=== PATIENT | female | born 1950 ===

== ENCOUNTER 2018-05-19 19:51 | Emergency (ER) | payer OTHER ==
[~2018-05-19] VITALS: Ht 152.4 cm; Wt 90.7 kg
[~2018-05-19 19:51] MED LIST: ACID REDUCER; ALBIPROI; ALBU.083IS; ASPI81EC PO; AZIT500 PO; BUPR100 PO; DONE10 PO; ESCI10 PO; EZET10 PO; FLUSAL2505; FURO40 PO; GABA600 PO; HYDACE5 PO; IPRAIS; KETO120T TOP; LISI20 PO; LISI5 PO; LIVALO; LOSA25 PO; LOSARTAN POTASS25 MG PO; METO100 PO; METO100ER PO; MODA200 PO; Metoprolol Tar100 MG PO; NAPR550 PO; OMEPRAZOLE MAGN20 MG PO; PARO25 PO; POTCHL20ER PO; PRAV20 PO; PRED20 PO; PROP80ER PO; Prednisone20 MG PO; RANO500T PO; ROSU10TA PO; SITA50T2 PO; SOLI5 PO; TRIHYD253A PO; VENLAFAXINE HCL75 MG PO; Zofran8 MG PO; [UNRECOGNIZED DRUG - REMARK]
[2018-05-19] MEDS ORDERED: TRIAMTERENE (20:25)
[2018-05-19] MEDS ORDERED: ESCI10 PO (20:25)
[2018-05-19] MEDS ORDERED: METO25 PO (20:26)
[2018-05-19] MEDS ORDERED: TRADJENTA5 MG PO (20:26)
[2018-05-19] MEDS ORDERED: VENL150ER PO (20:26)
[2018-05-19] MEDS ORDERED: RANITIDINE HCL (20:27)
[2018-05-19] MEDS ORDERED: ROSU10TA PO (20:28)
[2018-05-19] MEDS ORDERED: RANO500T (20:28)
[2018-05-19] MEDS ORDERED: METF500C (20:29)
[2018-05-19] MEDS ORDERED: MOTION RELIEF25 MG PO (20:29)
[2018-05-19 20:33] LABS: BASOPHILS ABSOLUTE AUTO 0.08 K/mm3 (0.00-0.23); BASOPHILS PERCENT AUTO 1 % (0-2); EOSINOPHILS ABSOLUTE AUTO 0.22 K/mm3 (0.00-0.68); EOSINOPHILS PERCENT AUTO 2 % (0-6); Hematocrit 42.9 % (33.0-51.0); Hemoglobin 14.1 g/dL (11.5-16.0); IMMATURE GRAN ABSOLUTE AUTO 0.11 K/mm3 (0.00-0.10); IMMATURE GRAN PERCENT AUTO 1 % (0-1); LYMPHOCYTES PERCENT AUTO 29 % (21-46); MONOCYTES ABSOLUTE AUTO 0.87 K/mm3 (0.16-1.47); MONOCYTES PERCENT AUTO 9 % (4-13); Mean Corpuscular HGB 28.5 pg (26.0-34.0); Mean Corpuscular HGB Conc 32.9 g/dL (31.5-36.5); Mean Corpuscular Volume 87 fL (80-100); Mean Platelet Volume 9.7 fL (9.1-12.4); NEUTROPHILS ABSOLUTE AUTO 5.26 K/mm3 (1.96-9.15); NEUTROPHILS PERCENT AUTO 57 % (41-73); Platelet Count 286 K/mm3 (150-400); RDW Coefficient Variation 12.5 % (11.7-14.2); RDW Standard Deviation 39.6 fL (35.1-46.3); Red Blood Cell Count 4.95 M/mm3 (3.80-5.20); White Blood Cell Count 9.24 K/mm3 (4.00-11.30)
[2018-05-19 20:50] LABS: Alanine Aminotransfer (ALT/SGP 36 U/L (12-78); Albumin, Blood 3.5 g/dL (3.4-5.0); Albumin/Globulin Ratio 0.8 (0.8-1.8); Alk Phos 115 U/L (50-136); Anion Gap 9 mmol/L (6-16); Aspartate Aminotrans (AST/SGOT 35 U/L (12-37); Bilirubin, Total 0.2 mg/dL (0.1-1.0); Blood Urea Nitrogen 14 mg/dL (8-24); Bun/Creatinine Ratio 21.8 (12.0-20.0); CO2, Blood 27 mmol/L (21-32); Calcium, Blood 9.1 mg/dL (8.5-10.1); Chloride, Blood 105 mmol/L (98-108); Creatinine, Blood 0.64 mg/dL (0.40-1.00); Globulin, Blood 4.2 g/dL (2.2-4.0); Glomerular Filtration Rate >60 (60-); Glucose, Blood 243 mg/dL (70-99); Potassium, Blood 3.8 mmol/L (3.5-5.5); Sodium, Blood 141 mmol/L (136-145); Total Protein, Blood 7.7 g/dL (6.4-8.2); Troponin I <0.015 ng/mL (0.000-0.040)
== END 2018-05-19 21:44 | disposition home or self-care (01) ==
LOC: ER 19:51
PROVIDERS: Emergency Medicine
DX: R07.89 Other chest pain (principal); F41.9 Anxiety disorder, unspecified; J44.9 Chronic obstructive pulmonary disease, unspecified; I10 Essential (primary) hypertension; E11.9 Type 2 diabetes mellitus without complications; F32.9 Major depressive disorder, single episode, unspecified; Z79.899 Other long term (current) drug therapy; Z79.82 Long term (current) use of aspirin; Z79.52 Long term (current) use of systemic steroids
CPT/HCPCS: 36415; 71046; 80053; 82947; 84484; 85025; 93005; 93010; 99284-25

== ENCOUNTER 2018-06-13 14:39 | Emergency (ER) | payer MEDICARE ==
[~2018-06-13] VITALS: Ht 154.9 cm; Wt 78.5 kg
[~2018-06-13 14:39] MED LIST changes: +METF500C; +METO25 PO; +MOTION RELIEF25 MG PO; +RANITIDINE HCL; +RANO500T; +TRADJENTA5 MG PO; +TRIAMTERENE; +VENL150ER PO
[2018-06-13] MEDS ORDERED: DONE10 PO (15:18)
[2018-06-13] MEDS ORDERED: SERT50 PO (15:20)
[2018-06-13 15:57] LABS: Source, Urine Clean Catch
[2018-06-13 16:06] LABS: Appearance, Urine Clear (Clear); Bilirubin, Urine Neg (Neg); Blood, Urine Neg (Neg); Color, Urine Yellow (P-Yellow); Glucose Qualitative, Urine Neg (Neg); Ketones, Urine Neg (Neg); Leukocyte Esterase, Urine Neg (Neg); Nitrite, Urine Neg (Neg); Protein, Urine Neg (Neg); Urobilinogen, Urine NORM (Normal)
[2018-06-13 16:07] LABS: BASOPHILS ABSOLUTE AUTO 0.05 K/mm3 (0.00-0.23); BASOPHILS PERCENT AUTO 1 % (0-2); EOSINOPHILS ABSOLUTE AUTO 0.14 K/mm3 (0.00-0.68); EOSINOPHILS PERCENT AUTO 1 % (0-6); Hematocrit 45.1 % (33.0-51.0); Hemoglobin 14.4 g/dL (11.5-16.0); IMMATURE GRAN ABSOLUTE AUTO 0.07 K/mm3 (0.00-0.10); IMMATURE GRAN PERCENT AUTO 1 % (0-1); LYMPHOCYTES ABSOLUTE AUTO 2.46 K/mm3 (0.84-5.20); LYMPHOCYTES PERCENT AUTO 25 % (21-46); MONOCYTES ABSOLUTE AUTO 0.78 K/mm3 (0.16-1.47); MONOCYTES PERCENT AUTO 8 % (4-13); Mean Corpuscular HGB 28.1 pg (26.0-34.0); Mean Corpuscular HGB Conc 31.9 g/dL (31.5-36.5); Mean Corpuscular Volume 88 fL (80-100); NEUTROPHILS ABSOLUTE AUTO 6.55 K/mm3 (1.96-9.15); NEUTROPHILS PERCENT AUTO 65 % (41-73); Platelet Count 253 K/mm3 (150-400); RDW Standard Deviation 42.1 fL (35.1-46.3); Red Blood Cell Count 5.12 M/mm3 (3.80-5.20); White Blood Cell Count 10.05 K/mm3 (4.00-11.30)
[2018-06-13 16:25] LABS: U Amphetamine Screen Not Detected; U Barbituate Screen Not Detected; U Benzodiazapine Screen DETECTED; U Buprenorphine Screen Not Detected; U Cannabinoids Screen Not Detected; U Cocaine Screen Not Detected; U Methadone Screen Not Detected; U Methamphetamine Screen Not Detected; U Opiates Screen Not Detected; U Oxycodone Screen Not Detected; U Phencyclidine Screen Not Detected; U Propoxyphene Screen Not Detected
[2018-06-13 16:31] LABS: Alanine Aminotransfer (ALT/SGP 35 U/L (12-78); Albumin, Blood 3.8 g/dL (3.4-5.0); Alk Phos 105 U/L (50-136); Anion Gap 8 mmol/L (6-16); Aspartate Aminotrans (AST/SGOT 28 U/L (12-37); Bilirubin, Total 0.3 mg/dL (0.1-1.0); Blood Urea Nitrogen 16 mg/dL (8-24); Bun/Creatinine Ratio 24.5 (12.0-20.0); CO2, Blood 28 mmol/L (21-32); Calcium, Blood 9.2 mg/dL (8.5-10.1); Chloride, Blood 105 mmol/L (98-108); Creatinine, Blood 0.65 mg/dL (0.40-1.00); Ethanol (Alcohol), Blood, Med <3 mg/dL; Free Thyroxine 0.93 ng/dL (0.70-1.60); Globulin, Blood 3.8 g/dL (2.2-4.0); Glomerular Filtration Rate >60 (60-); Glucose, Blood 176 mg/dL (70-99); Potassium, Blood 4.1 mmol/L (3.5-5.5); Salicylate <1.7 mg/dL (2.8-20.0); Sodium, Blood 141 mmol/L (136-145); Total Protein, Blood 7.6 g/dL (6.4-8.2)
[2018-06-13 17:14] LABS: Acetaminophen, Random <2.0 ug/mL (10.0-30.0)
== END 2018-06-13 18:57 | disposition home or self-care (01) ==
LOC: ER 14:39
PROVIDERS: Emergency Medicine
DX: F32.9 Major depressive disorder, single episode, unspecified (principal); F03.90 Unspecified dementia, unspecified severity, without behavioral disturbance, psychotic disturbance, mood disturbance, and anxiety; Z79.899 Other long term (current) drug therapy; Z79.82 Long term (current) use of aspirin; Z79.84 Long term (current) use of oral hypoglycemic drugs; J44.9 Chronic obstructive pulmonary disease, unspecified; I10 Essential (primary) hypertension; Z87.891 Personal history of nicotine dependence; F41.0 Panic disorder [episodic paroxysmal anxiety]; E11.9 Type 2 diabetes mellitus without complications
CPT/HCPCS: 80053; 81003; 84439; 84443; 84484; 85025; 93005; 93010; 99283; 99285-25; G0480; Q3014

== ENCOUNTER 2018-06-13 20:55 | Emergency (ER) | payer MEDICARE ==
[~2018-06-13] VITALS: Ht 154.9 cm; Wt 77.1 kg
[~2018-06-13 20:55] MED LIST changes: +SERT50 PO
== END 2018-06-13 21:43 | disposition home or self-care (01) ==
LOC: ER 20:55
DX: F41.0 Panic disorder [episodic paroxysmal anxiety] (principal); F32.9 Major depressive disorder, single episode, unspecified; J44.9 Chronic obstructive pulmonary disease, unspecified; E11.9 Type 2 diabetes mellitus without complications; F03.90 Unspecified dementia, unspecified severity, without behavioral disturbance, psychotic disturbance, mood disturbance, and anxiety; I10 Essential (primary) hypertension; Z79.899 Other long term (current) drug therapy; Z79.82 Long term (current) use of aspirin; Z79.84 Long term (current) use of oral hypoglycemic drugs; Z87.891 Personal history of nicotine dependence
CPT/HCPCS: 99283

== ENCOUNTER 2018-06-24 12:40 | Observation (INO) | payer MEDICARE ==
[~2018-06-24] VITALS: Ht 154.9 cm; Wt 74.8 kg
[2018-06-24 14:15] LABS: Appearance, Urine Clear (Clear); Bilirubin, Urine Neg (Neg); Blood, Urine 1+ (Neg); Color, Urine Yellow (P-Yellow); Glucose Qualitative, Urine 4+ (Neg); Ketones, Urine Neg (Neg); Leukocyte Esterase, Urine 2+ (Neg); Nitrite, Urine Neg (Neg); Protein, Urine Neg (Neg); Specific Gravity, Urine 1.015 (1.003-1.022); Urobilinogen, Urine NORM (Normal)
[2018-06-24 14:32] LABS: U Amphetamine Screen Not Detected; U Barbituate Screen Not Detected; U Benzodiazapine Screen Not Detected; U Buprenorphine Screen Not Detected; U Cannabinoids Screen Not Detected; U Cocaine Screen Not Detected; U Methadone Screen Not Detected; U Methamphetamine Screen Not Detected; U Opiates Screen Not Detected; U Oxycodone Screen Not Detected; U Phencyclidine Screen Not Detected; U Propoxyphene Screen Not Detected
[2018-06-24 14:36] LABS: Bacteria Mod /hpf; Squamous Epithelial Cells Mod /hpf (Few)
[2018-06-24 14:51] LABS: BASOPHILS ABSOLUTE AUTO 0.07 K/mm3 (0.00-0.23); BASOPHILS PERCENT AUTO 1 % (0-2); EOSINOPHILS ABSOLUTE AUTO 0.27 K/mm3 (0.00-0.68); EOSINOPHILS PERCENT AUTO 3 % (0-6); Hematocrit 46.1 % (33.0-51.0); Hemoglobin 14.7 g/dL (11.5-16.0); IMMATURE GRAN ABSOLUTE AUTO 0.05 K/mm3 (0.00-0.10); IMMATURE GRAN PERCENT AUTO 1 % (0-1); LYMPHOCYTES PERCENT AUTO 20 % (21-46); MONOCYTES ABSOLUTE AUTO 0.73 K/mm3 (0.16-1.47); MONOCYTES PERCENT AUTO 8 % (4-13); Mean Corpuscular HGB 28.4 pg (26.0-34.0); Mean Corpuscular HGB Conc 31.9 g/dL (31.5-36.5); Mean Corpuscular Volume 89 fL (80-100); NEUTROPHILS ABSOLUTE AUTO 6.63 K/mm3 (1.96-9.15); NEUTROPHILS PERCENT AUTO 69 % (41-73); Platelet Count 243 K/mm3 (150-400); RDW Coefficient Variation 12.7 % (11.7-14.2); RDW Standard Deviation 41.9 fL (35.1-46.3); Red Blood Cell Count 5.17 M/mm3 (3.80-5.20); White Blood Cell Count 9.65 K/mm3 (4.00-11.30)
[2018-06-24 14:55] LABS: Alanine Aminotransfer (ALT/SGP 51 U/L (12-78); Albumin, Blood 3.8 g/dL (3.4-5.0); Alk Phos 121 U/L (50-136); Anion Gap 7 mmol/L (6-16); Aspartate Aminotrans (AST/SGOT 38 U/L (12-37); Bilirubin, Total 0.2 mg/dL (0.1-1.0); Blood Urea Nitrogen 12 mg/dL (8-24); Bun/Creatinine Ratio 17.3 (12.0-20.0); CO2, Blood 31 mmol/L (21-32); Chloride, Blood 105 mmol/L (98-108); Creatinine, Blood 0.69 mg/dL (0.40-1.00); Ethanol (Alcohol), Blood, Med <3 mg/dL; Globulin, Blood 3.9 g/dL (2.2-4.0); Glomerular Filtration Rate >60 (60-); Glucose, Blood 204 mg/dL (70-99); Potassium, Blood 3.4 mmol/L (3.5-5.5); Salicylate <1.7 mg/dL (2.8-20.0); Sodium, Blood 143 mmol/L (136-145); Total Protein, Blood 7.7 g/dL (6.4-8.2)
[2018-06-24 15:02] LABS: Acetaminophen, Random <2.0 ug/mL (10.0-30.0)
[2018-06-25] MEDS ORDERED: Lexapro 2020 MG PO (17:10)
== END 2018-06-25 17:25 | disposition home or self-care (01) ==
LOC: ER 12:40 → EOR 12:41
PROVIDERS: ADMIT Emergency Medicine
DX: F33.2 Major depressive disorder, recurrent severe without psychotic features (principal); J44.9 Chronic obstructive pulmonary disease, unspecified; E11.9 Type 2 diabetes mellitus without complications; I10 Essential (primary) hypertension; Z79.899 Other long term (current) drug therapy
CPT/HCPCS: 80053; 81001; 84443; 85025; 86592; 87086; 99285; G0378; G0480; Q0163; Q3014

== ENCOUNTER → 2018-08-29 | Outpatient (CLI) | payer MEDICARE ==
[~2018-08-29] MED LIST changes: +Lexapro 2020 MG PO
== END | disposition home or self-care (01) ==
LOC: LAB SHORT 16:45 → LAB EV 16:45
DX: N39.0 Urinary tract infection, site not specified (principal)
CPT/HCPCS: 87086

== ENCOUNTER 2019-05-09 11:38 | Day surgery (SDC) | payer MEDICARE ==
[~2019-05-09] VITALS: Ht 152.4 cm; Wt 86.7 kg
[2019-05-09] MEDS ORDERED: Isosorbide Mono30 MG (12:47)
[2019-05-09] MEDS ORDERED: DESO.05TL (12:47)
[2019-05-09] MEDS ORDERED: Zocor20 MG (12:48)
--- NOTE | 2019-05-09 13:10 | NUR ---
05/09/19 1310 Cheri Upton POM MASK ON AND O2 SET AT 10L
== END 2019-05-09 14:15 | disposition home or self-care (01) ==
LOC: ORSCSDS 11:38
PROVIDERS: Internal Medicine Gastroenterology
PROC: 0DBM8ZX Excision of Descending Colon, Via Natural or Artificial Opening Endoscopic, Diagnostic (ICD-10-PCS; principal; 2019-05-09 13:00)
PROC: 0DBN8ZX Excision of Sigmoid Colon, Via Natural or Artificial Opening Endoscopic, Diagnostic (ICD-10-PCS; principal; 2019-05-09 13:00)
PROC: 0DBK8ZX Excision of Ascending Colon, Via Natural or Artificial Opening Endoscopic, Diagnostic (ICD-10-PCS; principal; 2019-05-09 13:00)
DX: Z12.11 Encounter for screening for malignant neoplasm of colon (principal); Z86.010 Personal history of colon polyps; K57.30 Diverticulosis of large intestine without perforation or abscess without bleeding; G47.33 Obstructive sleep apnea (adult) (pediatric); K55.20 Angiodysplasia of colon without hemorrhage; D12.2 Benign neoplasm of ascending colon; D12.5 Benign neoplasm of sigmoid colon; K63.5 Polyp of colon; E11.9 Type 2 diabetes mellitus without complications; J44.9 Chronic obstructive pulmonary disease, unspecified; E66.01 Morbid (severe) obesity due to excess calories; Z68.37 Body mass index [BMI] 37.0-37.9, adult; Z79.899 Other long term (current) drug therapy; Z79.84 Long term (current) use of oral hypoglycemic drugs; I10 Essential (primary) hypertension
CPT/HCPCS: 82947; 88305; J2704; J7120

== ENCOUNTER 2019-06-16 17:59 | Observation (INO) | payer MEDICARE ==
[~2019-06-16] VITALS: Ht 154.9 cm; Wt 83.4 kg
[~2019-06-16 17:59] MED LIST changes: +DESO.05TL; +Isosorbide Mono30 MG; +Zocor20 MG
[2019-06-16 18:28] LABS: BASOPHILS ABSOLUTE AUTO 0.05 K/mm3 (0.00-0.23); BASOPHILS PERCENT AUTO 1 % (0-2); EOSINOPHILS ABSOLUTE AUTO 0.07 K/mm3 (0.00-0.68); EOSINOPHILS PERCENT AUTO 1 % (0-6); Hematocrit 49.6 % (33.0-51.0); Hemoglobin 16.2 g/dL (11.5-16.0); IMMATURE GRAN ABSOLUTE AUTO 0.03 K/mm3 (0.00-0.10); IMMATURE GRAN PERCENT AUTO 0 % (0-1); LYMPHOCYTES ABSOLUTE AUTO 2.61 K/mm3 (0.84-5.20); LYMPHOCYTES PERCENT AUTO 29 % (21-46); MONOCYTES ABSOLUTE AUTO 0.67 K/mm3 (0.16-1.47); MONOCYTES PERCENT AUTO 7 % (4-13); Mean Corpuscular HGB 27.3 pg (26.0-34.0); Mean Corpuscular HGB Conc 32.7 g/dL (31.5-36.5); Mean Corpuscular Volume 84 fL (80-100); NEUTROPHILS ABSOLUTE AUTO 5.71 K/mm3 (1.96-9.15); NEUTROPHILS PERCENT AUTO 63 % (41-73); Platelet Count 305 K/mm3 (150-400); RDW Coefficient Variation 12.9 % (11.7-14.2); RDW Standard Deviation 39.3 fL (35.1-46.3); Red Blood Cell Count 5.94 M/mm3 (3.80-5.20); White Blood Cell Count 9.14 K/mm3 (4.00-11.30)
[2019-06-16 18:43] LABS: Albumin/Globulin Ratio 1.1 (0.8-1.8); Bilirubin, Total 0.4 mg/dL (0.1-1.0); Bun/Creatinine Ratio 19.8 (12.0-20.0); Calcium, Blood 9.5 mg/dL (8.5-10.1); Creatinine, Blood 1.01 mg/dL (0.40-1.00); Globulin, Blood 3.8 g/dL (2.2-4.0); Potassium, Blood 3.1 mmol/L (3.5-5.5); Total Protein, Blood 7.8 g/dL (6.4-8.2)
[2019-06-16 19:53] LABS: Source, Urine Clean Catch
[2019-06-16 20:03] LABS: Blood, Urine 2+ (Neg); Glucose Qualitative, Urine 2+ (Neg); Ketones, Urine 1+ (Neg); Leukocyte Esterase, Urine 2+ (Neg); Nitrite, Urine Pos (Neg); Protein, Urine 3+ (Neg); Specific Gravity, Urine 1.025 (1.003-1.022); Urobilinogen, Urine 1+ (Normal)
[2019-06-16 20:04] LABS: Appearance, Urine Hazy (Clear); Bilirubin, Urine 2+ (Neg); Color, Urine Amber (P-Yellow)
[2019-06-16 20:07] LABS: CPK Creatine Kinase 49 U/L (26-193)
[2019-06-16 20:15] LABS: Bacteria Mod /hpf; Squamous Epithelial Cells Few /hpf (Few)
[2019-06-16 20:17] LABS: Mucus Light (0-Heavy)
--- NOTE | 2019-06-17 00:59 | NUR ---
CALL TO MD MCCARTY LEFT @ [id number] TO REPORT BP 197/91
--- NOTE | 2019-06-17 04:31 | NUR ---
SHIFT SUMMARY PT NEW ER ADMIT THIS SHIFT, REPORT REC FROM ELAN @ 6357, PT TO ROOM @ 1220, BP 197/91 AT ADMIT, CALLED & 10MG HYDRAL ADMIN W/NO IMPROVMENT AFTER 1 HOUR CALLED. BP 152/66 AFTER 10MG LABET ADMIN, NO OTHER ISSUES/COMPLAINTS OF ANY KIND, PT CONFUSED AND HAS NOT SLEPT SINCE ASSUMING CARE, PT BEDRESTING WATCHING TV, CALL LIGHT IN REACH, WILL CONT TO MONITOR UNTIL REPORT GIVEN TO DAY RN.
[2019-06-17 05:33] LABS: BASOPHILS ABSOLUTE AUTO 0.06 K/mm3 (0.00-0.23); BASOPHILS PERCENT AUTO 1 % (0-2); EOSINOPHILS ABSOLUTE AUTO 0.11 K/mm3 (0.00-0.68); EOSINOPHILS PERCENT AUTO 1 % (0-6); Hematocrit 44.7 % (33.0-51.0); Hemoglobin 14.7 g/dL (11.5-16.0); IMMATURE GRAN ABSOLUTE AUTO 0.05 K/mm3 (0.00-0.10); IMMATURE GRAN PERCENT AUTO 1 % (0-1); LYMPHOCYTES ABSOLUTE AUTO 2.54 K/mm3 (0.84-5.20); LYMPHOCYTES PERCENT AUTO 25 % (21-46); MONOCYTES ABSOLUTE AUTO 0.82 K/mm3 (0.16-1.47); MONOCYTES PERCENT AUTO 8 % (4-13); Mean Corpuscular HGB 27.4 pg (26.0-34.0); Mean Corpuscular HGB Conc 32.9 g/dL (31.5-36.5); Mean Corpuscular Volume 83 fL (80-100); Mean Platelet Volume 10.9 fL (9.1-12.4); NEUTROPHILS ABSOLUTE AUTO 6.69 K/mm3 (1.96-9.15); NEUTROPHILS PERCENT AUTO 65 % (41-73); Platelet Count 240 K/mm3 (150-400); RDW Coefficient Variation 12.9 % (11.7-14.2); RDW Standard Deviation 39.4 fL (35.1-46.3); Red Blood Cell Count 5.37 M/mm3 (3.80-5.20); White Blood Cell Count 10.27 K/mm3 (4.00-11.30)
[2019-06-17 05:52] LABS: Anion Gap 10 mmol/L (6-16); Blood Urea Nitrogen 11 mg/dL (8-24); Bun/Creatinine Ratio 17.2 (12.0-20.0); CO2, Blood 24 mmol/L (21-32); Chloride, Blood 109 mmol/L (98-108); Creatinine, Blood 0.64 mg/dL (0.40-1.00); Glomerular Filtration Rate >60 (60-); Glucose, Blood 131 mg/dL (70-99); Sodium, Blood 143 mmol/L (136-145)
--- NOTE | 2019-06-17 06:16 | NUR ---
RESTRAINTS PT CONTINUING TO PULL OUT/OFF LINES/CORDS, BILATERAL SOFT WRISTS PLACED @ 0515, CALL PLACED TO
--- NOTE | 2019-06-17 09:01 | NUR ---
DEB CALLED THE PATIENT'S FOR A MEDICATION LIST, AT THIS TIME HE HAS NOT RETURNED MY CALL. [facility] AND [facility] DO NOT [facility] UNTIL 10 AM. THIS IS THE PATIENT'S NOTED PHARMACY AND THE PATIENT IS A POOR HISTORIAN.
[2019-06-17] MEDS ORDERED: LOSA50 PO (12:05)
[2019-06-17] MEDS ORDERED: LEVFLO500 PO (12:05)
[2019-06-17] MEDS ORDERED: DONEPEZIL HCL10 MG PO (12:07)
[2019-06-17] MEDS ORDERED: NUVIGIL150 MG PO (12:07)
[2019-06-17] MEDS ORDERED: ALBU3IS INH (12:07)
[2019-06-17] MEDS ORDERED: BUDE6HFA INH (12:07)
[2019-06-17] MEDS ORDERED: ESCI20 PO (12:08)
[2019-06-17] MEDS ORDERED: Dyazide 37.5-21 EACH PO (12:08)
[2019-06-17] MEDS ORDERED: FAMO20 PO (12:08)
[2019-06-17] MEDS ORDERED: MEMA5TAB PO (12:08)
--- NOTE | 2019-06-17 12:37 | NUR ---
DISCHARGE SUMMARY ALL INFORMATION GIVEN TO THE PATIENT AND HER SPOUSE. NO ACUTE CONCERNS AT THIS TIME. HER ANTIBIOTICS WERE GIVEN TO THE PATIENT TODAY. ALL MEDICATIONS SENT TO THE PHARMACY OF CHOICE. PATIENT WHEELED OUT BY ALEXA.
== END 2019-06-17 12:25 | disposition home or self-care (01) ==
LOC: ER 17:59 → MEDS 18:00
PROVIDERS: Emergency Medicine; ADMIT Internal Medicine
DX: R55 Syncope and collapse (principal); E87.6 Hypokalemia; N39.0 Urinary tract infection, site not specified; J43.9 Emphysema, unspecified; F03.91 Unspecified dementia, unspecified severity, with behavioral disturbance; I10 Essential (primary) hypertension; G47.33 Obstructive sleep apnea (adult) (pediatric); E11.9 Type 2 diabetes mellitus without complications; F32.9 Major depressive disorder, single episode, unspecified; G47.30 Sleep apnea, unspecified; Z87.891 Personal history of nicotine dependence; Z79.82 Long term (current) use of aspirin; Z79.84 Long term (current) use of oral hypoglycemic drugs; Z79.899 Other long term (current) drug therapy; W19.XXXA Unspecified fall, initial encounter
CPT/HCPCS: 36415; 70450; 71046; 71260; 80048; 80053; 81001; 82550; 82947; 84484; 85025; 85379; 87077; 87086; 87186; 93005; 93010; 96361; 96365-59; 96366; 96375; 97162; 99285-25; A9270; G0378; J0360; J0696; J3480; J7030; Q9967

== ENCOUNTER 2020-03-05 06:45 | Emergency (ER) | payer MEDICARE ==
[~2020-03-05] VITALS: Ht 154.9 cm; Wt 85.3 kg
[~2020-03-05 06:45] MED LIST changes: +ALBU3IS INH; +BUDE6HFA INH; +DONEPEZIL HCL10 MG PO; +Dyazide 37.5-21 EACH PO; +ESCI20 PO; +FAMO20 PO; +LEVFLO500 PO; +LOSA50 PO; +MEMA5TAB PO; +NUVIGIL150 MG PO
[2020-03-05 07:43] LABS: Source, Urine Clean Catch
[2020-03-05 07:46] LABS: Appearance, Urine Clear (Clear); Bilirubin, Urine Neg (Neg); Blood, Urine 1+ (Neg); Color, Urine Yellow (P-Yellow); Glucose Qualitative, Urine 4+ (Neg); Ketones, Urine 1+ (Neg); Leukocyte Esterase, Urine Neg (Neg); Nitrite, Urine Neg (Neg); Protein, Urine 2+ (Neg); Specific Gravity, Urine 1.015 (1.003-1.022); Urobilinogen, Urine NORM (Normal)
[2020-03-05 07:58] LABS: Bacteria Not Seen /hpf; Red Blood Cells, Urine 0-2 /hpf (0-2); Squamous Epithelial Cells Few /hpf (Few)
[2020-03-05 08:10] LABS: BASOPHILS ABSOLUTE AUTO 0.04 K/mm3 (0.00-0.23); BASOPHILS PERCENT AUTO 0 % (0-2); EOSINOPHILS ABSOLUTE AUTO 0.02 K/mm3 (0.00-0.68); EOSINOPHILS PERCENT AUTO 0 % (0-6); Hemoglobin 14.5 g/dL (11.5-16.0); IMMATURE GRAN ABSOLUTE AUTO 0.07 K/mm3 (0.00-0.10); IMMATURE GRAN PERCENT AUTO 1 % (0-1); LYMPHOCYTES ABSOLUTE AUTO 0.96 K/mm3 (0.84-5.20); LYMPHOCYTES PERCENT AUTO 8 % (21-46); MONOCYTES ABSOLUTE AUTO 0.92 K/mm3 (0.16-1.47); MONOCYTES PERCENT AUTO 7 % (4-13); Mean Corpuscular HGB 27.5 pg (26.0-34.0); Mean Corpuscular Volume 83 fL (80-100); NEUTROPHILS ABSOLUTE AUTO 10.57 K/mm3 (1.96-9.15); NEUTROPHILS PERCENT AUTO 84 % (41-73); Platelet Count 266 K/mm3 (150-400); RDW Coefficient Variation 12.5 % (11.7-14.2); RDW Standard Deviation 37.9 fL (35.1-46.3); Red Blood Cell Count 5.28 M/mm3 (3.80-5.20); White Blood Cell Count 12.58 K/mm3 (4.00-11.30)
[2020-03-05 08:22] LABS: Alanine Aminotransfer (ALT/SGP 24 U/L (12-78); Albumin, Blood 3.3 g/dL (3.4-5.0); Albumin/Globulin Ratio 0.8 (0.8-1.8); Alk Phos 120 U/L (50-136); Anion Gap 8 mmol/L (6-16); Aspartate Aminotrans (AST/SGOT 18 U/L (12-37); Bilirubin, Total 0.7 mg/dL (0.1-1.0); Blood Urea Nitrogen 11 mg/dL (8-24); CO2, Blood 26 mmol/L (21-32); Calcium, Blood 9.3 mg/dL (8.5-10.1); Chloride, Blood 103 mmol/L (98-108); Creatinine, Blood 0.55 mg/dL (0.40-1.00); Glomerular Filtration Rate >60 (60-); Glucose, Blood 259 mg/dL (70-99); Potassium, Blood 3.6 mmol/L (3.5-5.5); Sodium, Blood 137 mmol/L (136-145); Total Protein, Blood 7.3 g/dL (6.4-8.2)
== END 2020-03-05 09:10 | disposition home or self-care (01) ==
LOC: ER 06:45
PROVIDERS: Emergency Medicine
DX: S40.012A Contusion of left shoulder, initial encounter (principal); F03.90 Unspecified dementia, unspecified severity, without behavioral disturbance, psychotic disturbance, mood disturbance, and anxiety; E11.65 Type 2 diabetes mellitus with hyperglycemia; G93.9 Disorder of brain, unspecified; J43.9 Emphysema, unspecified; I10 Essential (primary) hypertension; F32.9 Major depressive disorder, single episode, unspecified; Z79.82 Long term (current) use of aspirin; Z79.899 Other long term (current) drug therapy; Z79.51 Long term (current) use of inhaled steroids; Z79.84 Long term (current) use of oral hypoglycemic drugs; W06.XXXA Fall from bed, initial encounter
CPT/HCPCS: 36415; 70450; 71046; 72125; 73030; 80053; 81001; 85025; 99284-25; P9612

== ENCOUNTER 2020-04-18 19:11 | Inpatient (IN) | payer MEDICARE ==
[~2020-04-18] VITALS: Ht 170.2 cm; Wt 81.1 kg
[~2020-04-18 19:11] MED LIST changes: -DONEPEZIL HCL10 MG PO; -ESCI20 PO; -LOSA50 PO; -MEMA5TAB PO; -METF500C; -METO25 PO; -Zocor20 MG
[2020-04-18 19:46] LABS: Source, Urine Catheter
[2020-04-18 20:00] LABS: Blood, Urine Neg (Neg); Glucose Qualitative, Urine 4+ (Neg); Ketones, Urine 1+ (Neg); Leukocyte Esterase, Urine Neg (Neg); Nitrite, Urine Neg (Neg); Protein, Urine 3+ (Neg); Specific Gravity, Urine 1.025 (1.003-1.022); Urobilinogen, Urine 2+ (Normal)
[2020-04-18 20:15] LABS: Appearance, Urine Hazy (Clear); Bilirubin, Urine 2+ (Neg); Color, Urine Yellow (P-Yellow)
[2020-04-18 20:16] LABS: Amorphous Mod (0-Heavy); Bacteria Few /hpf; Mucus Light (0-Heavy); Red Blood Cells, Urine Not Seen /hpf (0-2); Squamous Epithelial Cells Mod /hpf (Few); White Blood Cells, Urine Rare /hpf (0-5)
[2020-04-18 20:33] LABS: BASOPHILS ABSOLUTE AUTO 0.08 K/mm3 (0.00-0.23); BASOPHILS PERCENT AUTO 1 % (0-2); EOSINOPHILS ABSOLUTE AUTO 0.01 K/mm3 (0.00-0.68); EOSINOPHILS PERCENT AUTO 0 % (0-6); Hematocrit 52.5 % (33.0-51.0); Hemoglobin 16.1 g/dL (11.5-16.0); IMMATURE GRAN ABSOLUTE AUTO 0.06 K/mm3 (0.00-0.10); IMMATURE GRAN PERCENT AUTO 1 % (0-1); LYMPHOCYTES ABSOLUTE AUTO 1.09 K/mm3 (0.84-5.20); LYMPHOCYTES PERCENT AUTO 9 % (21-46); MONOCYTES ABSOLUTE AUTO 0.68 K/mm3 (0.16-1.47); MONOCYTES PERCENT AUTO 5 % (4-13); Mean Corpuscular HGB Conc 30.7 g/dL (31.5-36.5); Mean Corpuscular Volume 88 fL (80-100); Mean Platelet Volume 10.9 fL (9.1-12.4); NEUTROPHILS ABSOLUTE AUTO 10.76 K/mm3 (1.96-9.15); NEUTROPHILS PERCENT AUTO 85 % (41-73); Platelet Count 275 K/mm3 (150-400); RDW Coefficient Variation 13.4 % (11.7-14.2); RDW Standard Deviation 43.7 fL (35.1-46.3); Red Blood Cell Count 5.96 M/mm3 (3.80-5.20); White Blood Cell Count 12.68 K/mm3 (4.00-11.30)
[2020-04-18] MEDS ORDERED: VENL150ER PO (21:31)
[2020-04-18] MEDS ORDERED: TRIA50 PO (21:31)
[2020-04-18] MEDS ORDERED: ESCI10 PO (21:31)
[2020-04-18] MEDS ORDERED: LOSA25 PO (21:32)
[2020-04-18] MEDS ORDERED: TRADJENTA5 MG PO (21:32)
[2020-04-18] MEDS ORDERED: MECL25 PO (21:34)
[2020-04-18] MEDS ORDERED: Crestor40 MG PO (21:34)
[2020-04-18] MEDS ORDERED: RANO500T PO (21:34)
[2020-04-18] MEDS ORDERED: POTA20PAC (21:35)
[2020-04-18 21:37] LABS: Alanine Aminotransfer (ALT/SGP 32 U/L (12-78); Albumin, Blood 3.7 g/dL (3.4-5.0); Albumin/Globulin Ratio 0.9 (0.8-1.8); Alk Phos 101 U/L (50-136); Anion Gap 7 mmol/L (6-16); Aspartate Aminotrans (AST/SGOT 33 U/L (12-37); Bilirubin, Total 0.4 mg/dL (0.1-1.0); Blood Urea Nitrogen 25 mg/dL (8-24); Bun/Creatinine Ratio 30.3 (12.0-20.0); CO2, Blood 27 mmol/L (21-32); Calcium, Blood 9.3 mg/dL (8.5-10.1); Chloride, Blood 125 mmol/L (98-108); Creatinine, Blood 0.83 mg/dL (0.40-1.00); Glomerular Filtration Rate >60 (60-); Glucose, Blood 277 mg/dL (70-99); Potassium, Blood 3.5 mmol/L (3.5-5.5); Sodium, Blood 159 mmol/L (136-145); Total Protein, Blood 7.7 g/dL (6.4-8.2)
[2020-04-18] MEDS ORDERED: METO25 PO (22:22)
[2020-04-18] MEDS ORDERED: METF500C PO (22:23)
[2020-04-18] MEDS ORDERED: Simvastatin40 MG PO (22:23)
[2020-04-18] MEDS ORDERED: LOSA50 PO (22:24)
[2020-04-18] MEDS ORDERED: DONEPEZIL HCL10 MG PO (22:24)
[2020-04-18] MEDS ORDERED: ESCI20 PO (22:24)
[2020-04-18] MEDS ORDERED: MEMA5TAB PO (22:25)
[2020-04-18] MEDS ORDERED: POTCHL20ER PO (22:25)
--- NOTE | 2020-04-19 00:11 | NUR ---
69 YR OLD FEMALE ADMITTED TO FLOOR FROM THE ED WITH DX OF HYPERNATREMIA, HOWEVER, PT SEEMS CONFUSED, HX OF AMS AND DEMENTIA. ED RN REPORTED FAMILY VOICED DECLINE IN MENTAL ACUITY ESPECIALLY OVER THE PAST WEEK OR SO. PT SEEMS UNABLE TO ANSWER ASMIT QUESTIONS RE MEDICAtIONS, WILL HAVE AM RN F/U WITH FAMILY. DISCUSSED CALL LIGHT WITH PT, PT HAS CALL LIGHT IN REACH. IVF INFUSING PER MD ORDERS - SEE MAR FOR DETAILS. BED ALARM ON FOR SAFETY
--- NOTE | 2020-04-19 03:08 | NUR ---
SHIFT SUMMARY ADMITTED EARLIER IN SHIFT, VERBAL RESPONSE WITH FEW WORDS. DOESNT APPEAR TO BE A GOOD HISTORIAN. IVF INFUSING AT 75 ML/HR. BED ALARM ON FOR POSSIBLE FALL PRECAUTIONS. CALL LIGHT IN REACH. CONTINUOUS PULSE OX IN USE. WILL CONT TO MONITOR
[2020-04-19 05:30] LABS: BASOPHILS ABSOLUTE AUTO 0.06 K/mm3 (0.00-0.23); BASOPHILS PERCENT AUTO 1 % (0-2); EOSINOPHILS ABSOLUTE AUTO 0.01 K/mm3 (0.00-0.68); EOSINOPHILS PERCENT AUTO 0 % (0-6); Hematocrit 48.5 % (33.0-51.0); Hemoglobin 14.5 g/dL (11.5-16.0); IMMATURE GRAN ABSOLUTE AUTO 0.05 K/mm3 (0.00-0.10); IMMATURE GRAN PERCENT AUTO 1 % (0-1); LYMPHOCYTES ABSOLUTE AUTO 1.91 K/mm3 (0.84-5.20); LYMPHOCYTES PERCENT AUTO 18 % (21-46); MONOCYTES ABSOLUTE AUTO 0.74 K/mm3 (0.16-1.47); MONOCYTES PERCENT AUTO 7 % (4-13); Mean Corpuscular HGB 26.8 pg (26.0-34.0); Mean Corpuscular HGB Conc 29.9 g/dL (31.5-36.5); Mean Corpuscular Volume 90 fL (80-100); NEUTROPHILS PERCENT AUTO 74 % (41-73); Platelet Count 241 K/mm3 (150-400); RDW Coefficient Variation 13.6 % (11.7-14.2); RDW Standard Deviation 44.8 fL (35.1-46.3); Red Blood Cell Count 5.42 M/mm3 (3.80-5.20); White Blood Cell Count 10.47 K/mm3 (4.00-11.30)
[2020-04-19 05:55] LABS: Anion Gap 6 mmol/L (6-16); Blood Urea Nitrogen 20 mg/dL (8-24); Bun/Creatinine Ratio 27.6 (12.0-20.0); CO2, Blood 27 mmol/L (21-32); Calcium, Blood 8.7 mg/dL (8.5-10.1); Chloride, Blood 128 mmol/L (98-108); Creatinine, Blood 0.73 mg/dL (0.40-1.00); Glomerular Filtration Rate >60 (60-); Glucose, Blood 189 mg/dL (70-99); Potassium, Blood 3.4 mmol/L (3.5-5.5); Sodium, Blood 161 mmol/L (136-145)
--- NOTE | 2020-04-19 11:15 | NUR ---
SPEECH EVAL SPEECH THERAPIST IN ROOM FOR EVAL. AT BEDSIDE TO HELP ANSWER QUESTION PT IS CONFUSED.
--- NOTE | 2020-04-19 17:35 | NUR ---
ROUNDING: DR IN TO SEE PATIENT. STAT SODIUM ORDERED AND FLUIDS INCREASED TO 100ML/HR. PT HAS HAD POOR PO INTAKE EVEN WITH ENCOURAGEMENT THIS SHIFT.
--- NOTE | 2020-04-19 18:27 | NUR ---
PT HAS BEEN STABLE THIS SHIFT. REAMINS CONFUSED. SPOUSE AT BEDSIDE MOST OF THE DAY. TELE SR. SATS STABLE ON RA WHEN AWAKE. CPAP WITH SLEEP. PT HAD SPEECH EVAL, STARTED ON MECHANICAL SOFT DIET. PT MUST BE FED. PT CAN USE SIPPY CUP, NO STRAW. FLUID INTAKE POOR. STAT SODIUM ORDERED THIS EVENING, PENDING RESULTS. IV FLUIDS INCREASED TO 100 ML/HR PER DR ORDER. BED ALARM ON FOR SAFETY.
--- NOTE | 2020-04-19 21:19 | NUR ---
IVF NOW INFUSING AT 200 ML/HR PER MD ORDERS. CONT PULSE OX REATTACHED TO FINGER. INSTRUCTED TO STOP PULLINF OFF BANDAGES AND PULSE OX. CALL LIGHT IN REACH
[2020-04-20 05:36] LABS: Anion Gap 5 mmol/L (6-16); Blood Urea Nitrogen 12 mg/dL (8-24); CO2, Blood 28 mmol/L (21-32); Calcium, Blood 8.7 mg/dL (8.5-10.1); Chloride, Blood 121 mmol/L (98-108); Creatinine, Blood 0.67 mg/dL (0.40-1.00); Glomerular Filtration Rate >60 (60-); Glucose, Blood 177 mg/dL (70-99); Potassium, Blood 2.9 mmol/L (3.5-5.5); Sodium, Blood 154 mmol/L (136-145)
--- NOTE | 2020-04-20 06:06 | NUR ---
SHIFT SUMMARY HAS BEEN RESTING QUIETLY WITH FEW INTERRUPTIONS. CHANGED A FEW TIMES FOR INCONTINENCE. IVF CONTINUES AT 200 ML/HR. BP ELEVATED, MD NOTIFIED AND MEDICATION ORDERS OBTAINED, MED GIVEN, WILL RECHECK BP FOR FOLLOW UP. NO COMPLAINTS VOICED. ASYMPTOMATIC. CALL LIGHT IN REACH
--- NOTE | 2020-04-20 14:29 | NUR ---
PATIENT IS ALERT AND CONFUSED. HER WAS HERE AT THE BEDSIDE FOR LUNCH. THE PATIENT IS COOPERATIVE WITH CARE. SHE ATTEMPTS TO GET OUT OF BED AND THE CHAIR ON HER OWN, APPROPRIATE ALARMS ON. PATIENT IS UP IN THE CHAIR AT THIS TIME, CHAIR ALARM IS ON. PATIENT IS ENCOURAGED TO DRINK WATER. MAGAZINE GIVEN TO THE PATIENT. WILL CONTINUE TO MONITOR
[2020-04-20 15:47] LABS: Anion Gap 6 mmol/L (6-16); Blood Urea Nitrogen 10 mg/dL (8-24); Bun/Creatinine Ratio 15.2 (12.0-20.0); CO2, Blood 30 mmol/L (21-32); Calcium, Blood 8.8 mg/dL (8.5-10.1); Chloride, Blood 108 mmol/L (98-108); Creatinine, Blood 0.66 mg/dL (0.40-1.00); Glomerular Filtration Rate >60 (60-); Glucose, Blood 239 mg/dL (70-99); Potassium, Blood 2.8 mmol/L (3.5-5.5); Sodium, Blood 144 mmol/L (136-145)
--- NOTE | 2020-04-21 04:55 | NUR ---
HEALTH DATA ADMINISTRATOR SUMMARY Patient alert to self, and extremely pleasantly confused. Pulled out three IV's overnight, and slid her legs THROUGH the bedrails multiple times. very cooperative wit care, and even bilateral wrist restraints which were placed shortly after third iv was removed. No signs of pain or discomfort noted overnight.
[2020-04-21 04:59] LABS: BASOPHILS ABSOLUTE AUTO 0.04 K/mm3 (0.00-0.23); BASOPHILS PERCENT AUTO 1 % (0-2); EOSINOPHILS ABSOLUTE AUTO 0.35 K/mm3 (0.00-0.68); EOSINOPHILS PERCENT AUTO 4 % (0-6); Hematocrit 45.7 % (33.0-51.0); Hemoglobin 14.5 g/dL (11.5-16.0); IMMATURE GRAN ABSOLUTE AUTO 0.03 K/mm3 (0.00-0.10); IMMATURE GRAN PERCENT AUTO 0 % (0-1); LYMPHOCYTES PERCENT AUTO 22 % (21-46); MONOCYTES PERCENT AUTO 7 % (4-13); Mean Corpuscular HGB 26.9 pg (26.0-34.0); Mean Corpuscular HGB Conc 31.7 g/dL (31.5-36.5); Mean Platelet Volume 11.2 fL (9.1-12.4); NEUTROPHILS ABSOLUTE AUTO 5.89 K/mm3 (1.96-9.15); NEUTROPHILS PERCENT AUTO 67 % (41-73); Platelet Count 188 K/mm3 (150-400); RDW Coefficient Variation 12.8 % (11.7-14.2); RDW Standard Deviation 39.4 fL (35.1-46.3); Red Blood Cell Count 5.39 M/mm3 (3.80-5.20); White Blood Cell Count 8.81 K/mm3 (4.00-11.30)
[2020-04-21 05:07] LABS: Mean Corpuscular Volume 85 fL (80-100)
[2020-04-21 05:28] LABS: Anion Gap 6 mmol/L (6-16); Blood Urea Nitrogen 9 mg/dL (8-24); Bun/Creatinine Ratio 14.6 (12.0-20.0); CO2, Blood 27 mmol/L (21-32); Chloride, Blood 112 mmol/L (98-108); Creatinine, Blood 0.62 mg/dL (0.40-1.00); Glomerular Filtration Rate >60 (60-); Glucose, Blood 235 mg/dL (70-99); Potassium, Blood 3.2 mmol/L (3.5-5.5); Sodium, Blood 145 mmol/L (136-145)
--- NOTE | 2020-04-21 17:05 | NUR ---
Spiritual care note: Ursula wiggins was awake and appeared open to companionship. Her words are mumbled with word salad. That said, she held my hand and met my eye as we spoke. Assured her of safety and love. She nodded 'yes' to prayer. I provided comfort through touch/presence of love. No family present. I will remain available.
--- NOTE | 2020-04-21 18:15 | NUR ---
SHIFT SUMMARY PATIENT PLEASANTLY CONFUSED. DENIES PAIN, NAUSEA, AND SHORTNESS OF BREATH. UP SBA TO BSC. SOFT WRIST RESTRAINTS IN PLACE DUE TO PULLING OUT SEVERAL IV'S. VISTED AT BEDSIDE. TELE AND FLUIDS DC'D. EATING AND DRINKING WELL WITH ASSISTANCE.
[2020-04-22 05:10] LABS: BASOPHILS ABSOLUTE AUTO 0.07 K/mm3 (0.00-0.23); BASOPHILS PERCENT AUTO 1 % (0-2); EOSINOPHILS ABSOLUTE AUTO 0.33 K/mm3 (0.00-0.68); EOSINOPHILS PERCENT AUTO 4 % (0-6); Hematocrit 47.7 % (33.0-51.0); IMMATURE GRAN ABSOLUTE AUTO 0.04 K/mm3 (0.00-0.10); IMMATURE GRAN PERCENT AUTO 1 % (0-1); LYMPHOCYTES ABSOLUTE AUTO 2.39 K/mm3 (0.84-5.20); LYMPHOCYTES PERCENT AUTO 28 % (21-46); MONOCYTES ABSOLUTE AUTO 0.69 K/mm3 (0.16-1.47); MONOCYTES PERCENT AUTO 8 % (4-13); Mean Corpuscular HGB Conc 31.4 g/dL (31.5-36.5); Mean Corpuscular Volume 86 fL (80-100); Mean Platelet Volume 11.4 fL (9.1-12.4); NEUTROPHILS ABSOLUTE AUTO 5.09 K/mm3 (1.96-9.15); NEUTROPHILS PERCENT AUTO 59 % (41-73); Platelet Count 213 K/mm3 (150-400); RDW Coefficient Variation 13.2 % (11.7-14.2); RDW Standard Deviation 40.6 fL (35.1-46.3); Red Blood Cell Count 5.55 M/mm3 (3.80-5.20); White Blood Cell Count 8.61 K/mm3 (4.00-11.30)
--- NOTE | 2020-04-22 05:34 | NUR ---
SUMMARY PT REMAINS CONFUSED AND UNABLE TO FOLLOW DIRECTIONS. PT REMAINS A HIGH FALL RISK AND CONTINUES TO PUT HER FEET OVER BEDSIDE. PT HAS SLEPT W/O COMPLAINT MOST OF THE SHIFT. PT CURRENTLY SLEEPING IN SOFT WRIST RESTRAINTS. CALL LIGHT IN REACH.
[2020-04-22 05:49] LABS: Anion Gap 7 mmol/L (6-16); Blood Urea Nitrogen 13 mg/dL (8-24); Bun/Creatinine Ratio 19.3 (12.0-20.0); CO2, Blood 28 mmol/L (21-32); Calcium, Blood 9.2 mg/dL (8.5-10.1); Chloride, Blood 111 mmol/L (98-108); Creatinine, Blood 0.68 mg/dL (0.40-1.00); Glomerular Filtration Rate >60 (60-); Glucose, Blood 184 mg/dL (70-99); Potassium, Blood 3.4 mmol/L (3.5-5.5); Sodium, Blood 146 mmol/L (136-145)
--- NOTE | 2020-04-22 16:24 | NUR ---
PT DISCHARGED HOME WITH VIA WHEELCHAIR AND NURSING AID. PATIENT WAS ALERT AND ORIENTED TO SELF, IV WAS DC'D AND WNL, PATIENT EDUCATED ON DISCHARGE INSTRUCTIONS TO FOLLOW UP WITH [facility] AND SS TO WATCH OUT FOR.
== END 2020-04-22 15:20 | disposition home or self-care (01) | DRG 641 ==
LOC: ER 19:11 → MEDS 19:12 → ER 23:45 → MEDS 23:50
PROVIDERS: Emergency Medicine; Family Medicine; Internal Medicine; Nurse Practitioner Acute Care; ADMIT Family Medicine
DX: E87.0 Hyperosmolality and hypernatremia (principal); G93.49 Other encephalopathy; E11.9 Type 2 diabetes mellitus without complications; E78.5 Hyperlipidemia, unspecified; F03.90 Unspecified dementia, unspecified severity, without behavioral disturbance, psychotic disturbance, mood disturbance, and anxiety; F32.9 Major depressive disorder, single episode, unspecified; G47.33 Obstructive sleep apnea (adult) (pediatric); G62.9 Polyneuropathy, unspecified; I10 Essential (primary) hypertension; J43.9 Emphysema, unspecified; K21.9 Gastro-esophageal reflux disease without esophagitis; Z87.891 Personal history of nicotine dependence; E87.6 Hypokalemia; F41.9 Anxiety disorder, unspecified
CPT/HCPCS: 36415; 70450; 71045; 80048; 80053; 81001; 82947; 83735; 84295; 85025; 92526; 92610; 94660; 94760; 94762; 96360; 96361; 97162; 97166; 97530; 97530-CQ; 97535; 99285-25; A9270; A9270-GY; J1650; J1940; J3480; J7030; J7070

== ENCOUNTER → 2021-07-29 | Outpatient (CLI) | payer OTHER ==
[~2021-07-29] MED LIST changes: +Crestor40 MG PO; +DONEPEZIL HCL10 MG PO; +ESCI20 PO; +LOSA50 PO; +MECL25 PO; +MEMA5TAB PO; +METF500C PO; +METO25 PO; +POTA20PAC; +Simvastatin40 MG PO; +TRIA50 PO
[2021-07-29 14:09] LABS: C DIFFICILE DNA NEGATIVE (Negative)
== END ==
LOC: LAB 09:14 → LAB SHORT 09:14
PROVIDERS: Family Medicine
DX: R19.7 Diarrhea, unspecified (principal)
CPT/HCPCS: 87493

== ENCOUNTER → 2021-08-14 | Outpatient (CLI) | payer OTHER | LOC: LAB 13:19 → LAB SHORT 13:19 | DX: R19.7 Diarrhea, unspecified (principal) | CPT/HCPCS: 87177; 87209 ==

== ENCOUNTER → 2022-03-11 | Outpatient (CLI) | payer OTHER ==
[~2022-03-11] MED LIST changes: +OSEL75CA PO
[2022-03-11 12:33] LABS: CHOL/HDL RATIO 4.2; Cholesterol 168 mg/dL (50-200); HDL Cholesterol 40 mg/dL (>39); LDL/HDL RATIO 2.6; Low Density Lipoprotein Chol 104 mg/dL (0-110); Triglycerides 118 mg/dL (30-160); Very Low Density Lipoprot Chol 23 mg/dL (6-32)
== END | disposition home or self-care (01) ==
LOC: LAB SHORT 08:30 → LAB 08:30
PROVIDERS: Family Medicine
DX: E11.65 Type 2 diabetes mellitus with hyperglycemia (principal); E78.2 Mixed hyperlipidemia
CPT/HCPCS: 80061; 83036

== ENCOUNTER 2022-05-06 13:32 | Emergency (ER) | payer OTHER ==
[~2022-05-06] VITALS: Ht 170.2 cm; Wt 65.8 kg
[2022-05-06 15:17] LABS: BASOPHILS ABSOLUTE AUTO 0.05 K/mm3 (0.00-0.23); BASOPHILS PERCENT AUTO 1 % (0-2); EOSINOPHILS ABSOLUTE AUTO 0.03 K/mm3 (0.00-0.68); EOSINOPHILS PERCENT AUTO 0 % (0-6); Hematocrit 37.1 % (33.0-51.0); Hemoglobin 11.9 g/dL (11.5-16.0); IMMATURE GRAN ABSOLUTE AUTO 0.04 K/mm3 (0.00-0.10); IMMATURE GRAN PERCENT AUTO 0 % (0-1); LYMPHOCYTES ABSOLUTE AUTO 1.56 K/mm3 (0.84-5.20); LYMPHOCYTES PERCENT AUTO 15 % (21-46); MONOCYTES ABSOLUTE AUTO 0.83 K/mm3 (0.16-1.47); MONOCYTES PERCENT AUTO 8 % (4-13); Mean Corpuscular HGB 26.9 pg (26.0-34.0); Mean Corpuscular HGB Conc 32.1 g/dL (31.5-36.5); Mean Corpuscular Volume 84 fL (80-100); Mean Platelet Volume 10.1 fL (9.1-12.4); NEUTROPHILS PERCENT AUTO 77 % (41-73); Platelet Count 364 K/mm3 (150-400); RDW Coefficient Variation 13.6 % (11.7-14.2); RDW Standard Deviation 42.2 fL (35.1-46.3); Red Blood Cell Count 4.43 M/mm3 (3.80-5.20); White Blood Cell Count 10.71 K/mm3 (4.00-11.30)
[2022-05-06 15:46] LABS: Magnesium, Blood 2.3 mg/dL (1.6-2.4)
[2022-05-06 15:49] LABS: Albumin, Blood 2.5 g/dL (3.4-5.0); Albumin/Globulin Ratio 0.5 (0.8-1.8); Bilirubin, Total 0.3 mg/dL (0.1-1.0); Bun/Creatinine Ratio 28.6 (12.0-20.0); Calcium, Blood 9.8 mg/dL (8.5-10.1); Creatinine, Blood 0.67 mg/dL (0.40-1.00); Globulin, Blood 5.2 g/dL (2.2-4.0); Potassium, Blood 3.1 mmol/L (3.5-5.5); Thyroid Stimulating Hormone 1.01 uIU/mL (0.360-4.800); Total Protein, Blood 7.7 g/dL (6.4-8.2)
[2022-05-06 16:17] LABS: Source, Urine Straight Cath
[2022-05-06 16:23] LABS: Appearance, Urine Clear (Clear); Bilirubin, Urine Neg (Neg); Blood, Urine Neg (Neg); Color, Urine Yellow (P-Yellow); Glucose Qualitative, Urine Neg (Neg); Ketones, Urine 1+ (Neg); Leukocyte Esterase, Urine Neg (Neg); Nitrite, Urine Neg (Neg); Protein, Urine Neg (Neg); Urobilinogen, Urine 3+ (Normal); pH, Urine 6.5 (5.0-8.0)
[2022-05-06 16:28] LABS: Influenza A, PCR NEGATIVE (NEGATIVE); Influenza B, PCR NEGATIVE (NEGATIVE); Resp Syncytial Virus, PCR NEGATIVE (NEGATIVE); SARS-Cov-2 (COVID-19) PCR, MMC NEGATIVE (NEGATIVE)
== END 2022-05-06 20:17 | disposition home or self-care (01) ==
LOC: ER 13:32
PROVIDERS: Student in an Organized Health Care Education/Training Program
DX: R41.82 Altered mental status, unspecified (principal); N63.0 Unspecified lump in unspecified breast; Z79.84 Long term (current) use of oral hypoglycemic drugs; Z79.899 Other long term (current) drug therapy; J43.9 Emphysema, unspecified; E11.9 Type 2 diabetes mellitus without complications; I10 Essential (primary) hypertension; Z87.891 Personal history of nicotine dependence; Z20.822 Contact with and (suspected) exposure to COVID-19
CPT/HCPCS: 0241U; 36415; 70450; 71045; 76604; 80053; 81003; 83605; 83735; 84443; 85025; 93005; 93010; A9270; J3480; J7030; P9612

== ENCOUNTER → 2022-05-06 | Outpatient (CLI) | payer OTHER ==
[2022-05-06 11:35] LABS: Bun/Creatinine Ratio 32.5 (12.0-20.0); Calcium, Blood 9.9 mg/dL (8.5-10.1); Creatinine, Blood 0.65 mg/dL (0.40-1.00); Potassium, Blood 3.3 mmol/L (3.5-5.5)
== END | disposition home or self-care (01) ==
LOC: LAB SHORT 08:30 → LAB 08:30
PROVIDERS: Family Medicine
DX: I10 Essential (primary) hypertension (principal)
CPT/HCPCS: 80048